=== PATIENT | female | born 1940 | race Hispanic/Latino ===

== ENCOUNTER 2019-06-28 15:08 | Emergency (ER) | payer MEDICARE, OTHER ==
[~2019-06-28] VITALS: Ht 162.6 cm; Wt 59.0 kg
[2019-06-28] MEDS ORDERED: HYDRALAZINE HCL 20 MG/ML VIAL IV STA (15:40)
[2019-06-28] MEDS ORDERED: ONDANSETRON HCL INJ 2MG/ML 2ML 2 MG/ML VIAL IV STA (15:40)
[2019-06-28] MEDS ORDERED: MORPHINE SULFATE 5 MG/ML VIAL IV ONE (15:45)
[2019-06-28] MEDS ORDERED: MORPHINE SULFATE INJ 4 MG/ML INJ 1ML ONE (16:07)
[2019-06-28] MEDS ORDERED: MORPHINE SULFATE INJ 4 MG/ML INJ 1ML IV ONE (16:30)
--- NOTE | 2019-06-28 16:33 | Diagnostic Imaging Report ---
EXAMINATION: CXR 1 VEW - HOPD INDICATION: Cough, altered mental status COMPARISON: None FINDINGS: LINES/TUBES:None LUNGS:The lungs are well-inflated. No focal consolidation or pulmonary edema. PLEURA:No pleural effusion or pneumothorax. MEDIASTINUM:The cardiomediastinal silhouette appears normal in size and shape. BONES/SOFT TISSUES:No acute osseous injury. ABDOMEN:No free air under the diaphragm. IMPRESSION: No focal pneumonia or pulmonary edema. Signed by: Emi Harper MD on 06/28/2019 4:29 PM
[2019-06-28] MEDS ORDERED: HYDRALAZINE HCL 20 MG/ML VIAL ONE (17:01)
--- NOTE | 2019-06-28 17:02 | Diagnostic Imaging Report ---
Exam: Head CT without contrast History: Altered mental status, cough, congestion, vomiting, elevated BP. Comparison studies: None Technique: Axial images were obtained from the skull base to the vertex. Coronal and sagittal images reconstructed from the axial data. Dose modulation, iterative reconstruction, and/or weight based adjustment of the mA/kV was utilized to reduce the radiation dose to as low as reasonably achievable. Radiation dose: Total DLP: 969.14 mGy*cm. Estimated effective dose: DLP x 0.015 Intravenous contrast: None Findings: Scalp: No abnormalities. Bones: No fractures, blastic or lytic lesions. Brain sulci: Appropriate for age. Ventricles: Normal in size and configuration. No hydrocephalus. Extra-axial spaces: No masses, no fluid collection. Parenchyma: No abnormal densities. No masses, acute hemorrhage, acute or chronic vascular insults. Sellar/suprasellar region: No abnormalities. Craniocervical junction: Patent foramen magnum. No Chiari one malformation. Included paranasal sinuses: Clear. Middle ear mastoid cavities: Clear. IMPRESSION: No abnormalities. Signed by: Dr. Roger Peña M.D. on 06/28/2019 4:58 PM
[2019-06-28] MEDS ORDERED: TETRACAINE HCL 0.5% OPTH SOLN 4 ML BTL OP ONE (17:30)
[2019-06-28] MEDS ORDERED: TETRACAINE HCL 0.5% OPTH SOLN 4 ML BTL ONE (17:41)
[2019-06-28] MEDS ORDERED: TIMOPTIC 0.25%1 EACH OP (17:49)
[2019-06-28] MEDS ORDERED: FIORICET 50-301 EACH PO (17:49)
[2019-06-28] MEDS ORDERED: MAXITROL EYE O3.5 GM OP (17:49)
[2019-06-28 19:11] VITALS: BP 192/94
== END 2019-06-28 18:00 | disposition home or self-care (01) ==
LOC: FSED 15:08
DX: G44.89 Other headache syndrome (principal); R11.0 Nausea; I10 Essential (primary) hypertension
CPT/HCPCS: 70450; 71045; 80053; 85025; 96374; 96375; 96376; 99284; J0360; J2270; J2405